=== PATIENT | male | born 2000 | race Caucasian/White ===

== ENCOUNTER 2022-05-28 20:54 | Emergency (ER) | payer BC ==
[~2022-05-28] VITALS: Ht 180.3 cm; Wt 72.7 kg
[2022-05-28 21:11] VITALS: BP 125/78; TEMP 97.1
[2022-05-28 22:54] VITALS: PULSE 62
== END 2022-05-28 22:54 | disposition home or self-care (01) ==
LOC: COL.ER 20:54
DX: Z29.14 Encounter for prophylactic rabies immune globulin (principal)

== ENCOUNTER 2022-05-28 21:31 | Outpatient (RCR) | payer BC ==
[~2022-05-28] VITALS: Ht 180.3 cm; Wt 73.3 kg
[2022-06-11 15:32] VITALS: BP 133/91; PULSE 77; TEMP 97.7
== END 2022-06-11 17:06 | disposition home or self-care (01) ==
LOC: EUO 06-11 14:46
DX: Z29.14 Encounter for prophylactic rabies immune globulin (principal)

== ENCOUNTER 2022-05-28 21:31 | Outpatient (RCR) | payer BC ==
[~2022-05-28] VITALS: Ht 180.3 cm; Wt 73.3 kg
[2022-06-04 16:42] VITALS: BP 129/86; PULSE 72; TEMP 97.9
== END 2022-06-05 ==
LOC: EUO → EDSTATUS 06-04 15:00 → EUO 06-04 16:24
DX: Z23 Encounter for immunization (principal)

== ENCOUNTER 2022-05-31 14:54 | Outpatient (RCR) | payer BC ==
[2022-05-31 15:06] VITALS: BP 147/99; PULSE 84; TEMP 97.3
== END 2022-06-05 ==
LOC: COL.ER
DX: Z29.14 Encounter for prophylactic rabies immune globulin (principal)